=== PATIENT | female | born 1975 | race Caucasian/White ===

== ENCOUNTER 2018-03-25 08:50 | Emergency (ER) | payer OTHER ==
[~2018-03-25] VITALS: Ht 170.2 cm; Wt 56.7 kg
[~2018-03-25 08:50] MED LIST: CEPH-264 PO; HYDR-971 PO; SULF1TAB24 PO
[2018-03-25] MEDS ORDERED: IV NORMAL SALINE 1,000ML 1,000 ML IV SCH (09:08)
[2018-03-25] MEDS ORDERED: KETOROLAC 30 MG/ML VIAL. IV ONE (09:30)
[2018-03-25] MEDS ORDERED: ONDANSETRON PF 4 MG/2 ML VIAL. IV ONE (09:30)
[2018-03-25 09:47] LABS: BASO % 0 % (0-3); EOS % 0 % (0-3); HEMATOCRIT 42.2 % (36.0-47.0); HEMOGLOBIN 13.9 g/dL (12.0-15.5); LYMPH # 0.4 x10^3/uL (1.0-4.8); LYMPH % 5 % (24-48); MEAN CORPUSCULAR HEMOGLOBIN 29 pg (25-35); MEAN CORPUSCULAR HGB CONC 33 g/dL (31-37); MEAN CORPUSCULAR VOLUME 87 fL (79-100); MONO % 0 % (0-9); NEUT # 7.2 x10^3uL (1.8-7.7); NEUT % 94 % (31-73); PLATELET COUNT 229 x10^3/uL (140-400); RED BLOOD COUNT 4.84 x10^6/uL (3.50-5.40); RED CELL DISTRIBUTION WIDTH 14.7 % (11.5-14.5); WHITE BLOOD COUNT 7.7 x10^3/uL (4.0-11.0)
[2018-03-25 09:59] LABS: CALCIUM 8.9 mg/dL (8.5-10.1); CREATININE 0.6 mg/dL (0.6-1.0); GFR 110.2
[2018-03-25 10:00] LABS: POTASSIUM 4.4 mmol/L (3.5-5.1)
--- NOTE | 2018-03-25 10:16 | PHYS DOC ---
Past History Past Medical History: Hypertension, Other Past Surgical History: Cholecystectomy Smoking: Cigarettes Alcohol Use: Occasionally Drug Use: None Adult General Chief Complaint Chief Complaint: BACK PAIN OR INJURY HPI HPI Patient is a 43 year old female who presents with complaining of back pain. Patient states she woke up this morning with severe low back pain in bilateral lower back without radiation. Patient states the pain is a constant pain and rated her pain 10 over 10 and complaining of nausea. Patient denies focal neuro deficit, nausea and vomiting, urinary symptoms, , abdominal pain, injury, history of the same pain. Patient is screaming of pain. Review of Systems Review of Systems Constitutional: Denies fever or chills [] Eyes: Denies change in visual acuity, redness, or eye pain [] HENT: Denies nasal congestion or sore throat [] Respiratory: Denies cough or shortness of breath [] Cardiovascular: No additional information not addressed in HPI [] GI: Denies abdominal pain, nausea, vomiting, bloody stools or diarrhea [] : Denies dysuria or hematuria [] Musculoskeletal: Reports back pain Integument: Denies rash or skin lesions [] Neurologic: Denies headache, focal weakness or sensory changes [] Endocrine: Denies polyuria or polydipsia [] All other systems were reviewed and found to be within normal limits, except as documented in this note. Current Medications Current Medications Current Medications Medications (Trade) Dose Ordered Sig/[facility] Start Time Stop Time Status Last Admin Dose Admin Ketorolac Tromethamine (Toradol 30mg Vial) 30 mg 1X ONCE 03/25/18 09:30 03/25/18 09:31 DC Ondansetron HCl (Zofran) 4 mg 1X ONCE 03/25/18 09:30 03/25/18 09:31 DC Sodium Chloride 1,000 ml @ 1,000 mls/hr Q1H 03/25/18 09:08 03/25/18 10:07 Allergies Allergies Allergies Coded Allergies Type Severity Reaction Last Updated Verified No Known Drug Allergies 01/09/15 No Physical Exam Physical Exam Constitutional: Well nourished, moderate distress, non-toxic appearance, anxious and agitated and screaming of pain. [] HENT: Normocephalic, atraumatic Eyes: PERRLA, EOMI, conjunctiva normal, no discharge. [] Neck: Normal range of motion, no tenderness, supple, no stridor. [] Cardiovascular:Heart rate regular rhythm, no murmur [] Lungs & Thorax: Bilateral breath sounds clear to auscultation [] Abdomen: Bowel sounds normal, soft, no tenderness, no masses, no pulsatile masses. [] Skin: Warm, dry, no erythema, no rash. [] Back: No midline tenderness, bilateral paraspinal muscle voluntary guarding no CVA tenderness. [] Extremities: No tenderness, no cyanosis, no clubbing, ROM intact, no edema, multiple needle stick myrna on extremities] Neurologic: Alert and oriented X 3, normal motor function, normal sensory function, no focal deficits noted. [] Psychologic: Affect anxious Current Patient Data Vital Signs Vital Signs Date Time Temp Pulse Resp B/P (MAP) Pulse Ox O2 Delivery O2 Flow Rate FiO2 03/25/18 08:53 98.5 131 20 100 Room Air EKG EKG [] Radiology/Procedures Radiology/Procedures [] Course & Med Decision Making Course & Med Decision Making Pertinent Labs reviewed. (See chart for details) Evaluation of patient in ER showed 43-year-old female patient with complaining of sudden onset of low back pain since this morning. Patient screaming of pain and moving frequently because of the pain. Patient denies using drugs but had positive UDS for methamphetamine and opiates. Patient was able to fall asleep after treatment in ER. Patient informed about test result and plan of care for applying ice on her back and using anti-inflammatory and muscle relaxant. Dragon Disclaimer Dragon Disclaimer This electronic medical record was generated, in whole or in part, using a voice recognition dictation system. Departure Departure: Impression: Primary Impression: Back pain Additional Impressions: Methamphetamine abuse Anxiety Tobacco abuse Tobacco abuse counseling Disposition: HOME, SELF-CARE (@1056) Condition: IMPROVED Referrals: PCP,NO (PCP) Patient Instructions: Amphetamine Abuse, Lumbosacral Strain, Smoking Cessation , Tips For Success Additional Instructions: Apply ice on your back Follow-up with your primary care physician in 3-5 days Return to ER if not getting better Scripts Naproxen (NAPROSYN) 500 Mg Tablet 1 TAB PO BID, #20 TAB Prov: JHONNY SENA MD 03/25/18 Cyclobenzaprine Hcl (CYCLOBENZAPRINE HCL) 10 Mg Tablet 1 TAB PO TID, #20 TAB Prov: JHONNY SENA MD 03/25/18 Problem Qualifiers JHONNY SENA MD Mar 25, 2018 10:16
[2018-03-25 10:37] LABS: BARBITURATES NEG (NEG); BENZODIAZEPINES NEG (NEG); CANNABINOIDS NEG (NEG); COCAINE NEG (NEG); METHADONE NEG (NEG); OPIATES POS (NEG); PHENCYCLIDINE NEG (NEG)
[2018-03-25 10:38] LABS: AMPHETAMINE/METHAMPHETAMINE POS (NEG)
[2018-03-25 10:43] LABS: BACTERIA,URINE 0 /HPF (0-FEW); BILIRUBIN,URINE NEG (NEG); CLARITY,URINE CLEAR; COLOR,URINE YELLOW; GLUCOSE,URINE NEG (NEG); NITRITE,URINE NEG (NEG); RBC,URINE 0 /HPF (0-2); SQUAMOUS EPITHELIAL CELL,UR OCC /LPF; UROBILINOGEN,URINE 0.2 mg/dL (0.2 mg/dL); WBC,URINE 0 /HPF (0-4)
[2018-03-25] MEDS ORDERED: CYCL-331 PO (10:58)
[2018-03-25] MEDS ORDERED: NAPR-683 PO (10:58)
[2018-03-25 11:00] VITALS: BP 108/54
== END 2018-03-25 11:19 | disposition home or self-care (01) ==
LOC: ER 08:50
DX: M54.5 Low back pain (principal); F15.10 Other stimulant abuse, uncomplicated; F41.9 Anxiety disorder, unspecified; I10 Essential (primary) hypertension; F17.210 Nicotine dependence, cigarettes, uncomplicated; Z71.6 Tobacco abuse counseling
CPT/HCPCS: 36415; 80048; 80307; 81001; 83690; 85025; 96374; 96375; 99284; J1885; J2405; J3010; G0479; J7030

== ENCOUNTER 2020-08-14 00:16 | Emergency (ER) | payer MEDICAID, OTHER ==
[~2020-08-14] VITALS: Ht 170.2 cm; Wt 59.3 kg
[~2020-08-14 00:16] MED LIST changes: +CYCL-331 PO; +HYDR-3165 PO; -HYDR-971 PO; +NAPR-683 PO
--- NOTE | 2020-08-14 00:35 | PHYS DOC ---
Past History Past Medical History: Hypertension, Other Past Surgical History: Cholecystectomy Smoking: Cigarettes Alcohol Use: Occasionally Drug Use: None General Adult EDM: Chief Complaint: MECHANICAL FALL HPI: HPI: " I slipped on bathroom floor.. and hit my head yesterday.. maybe out a second.. but had a head ache since.. and just not recovered..." Patient is a 45 year old female who presents with above hx and complaints of headache and generalized upper neck tenderness. Patient does not think she would completely unconscious but was stunned from the fall. Patient states she fell because she slipped on a wet bathroom floor. Patient states she has had some generalized head pain and myalgias since fall. No history immunosuppression. Not on any anticoagulants. Normally healthy. Does smoke. Up-to-date vaccinations. Review of Systems: Review of Systems: Constitutional: Denies fever or chills Eyes: Denies change in visual acuity HENT: Denies nasal congestion or sore throat Respiratory: Denies cough or shortness of breath Cardiovascular: Denies chest pain or edema GI: Denies abdominal pain, nausea, vomiting, bloody stools or diarrhea : Denies dysuria Musculoskeletal: Denies back pain or joint pain Integument: Denies rash Neurologic: Complains of headache,. Denies focal weakness . States her olfactory sensory changes Endocrine: Denies polyuria or polydipsia Lymphatic: Denies swollen glands Psychiatric: Denies depression or anxiety Family History: Family History: Noncontributory to presentation Current Medications: Current Meds: See nursing for home meds Allergies: Allergies: Allergies Coded Allergies Type Severity Reaction Last Updated Verified No Known Drug Allergies 01/09/15 No Physical Exam: PE: Constitutional:, no acute distress, non-toxic appearance. [] HENT: Normocephalic, contusion to forehead, bilateral external ears normal, oropharynx moist, no oral exudates, nose normal. [] Eyes: PERRLA, EOMI, conjunctiva normal, no discharge. [] Neck: Normal range of motion, upper neck paracervical tenderness, supple, no stridor. [] Cardiovascular:Heart rate regular rhythm, no murmur [] Lungs & Thorax: Bilateral breath sounds equal apex with scattered wheezes on auscultation [] Abdomen: Bowel sounds normal, soft, no tenderness, no masses, no pulsatile masses. Old surgery scars Skin: Warm, dry, no erythema, no rash. [] Back: No tenderness, no CVA tenderness. [] Extremities: No tenderness, no cyanosis, no clubbing, ROM intact, no edema. [] Neurologic: Alert and oriented X 3, normal motor function, normal sensory function, no focal deficits noted. [] DTRs +2 patella and brachial. [facility] equa l. No drift. Ambulatory without problems. Psychologic: Affect anxious, judgement normal, mood normal. [] EKG: EKG: [] Radiology/Procedures: Radiology/Procedures: [][address] [address] IMAGING REPORT Signed PATIENT: JAMES GORMAN ACCOUNT: [id number] : 1975 LOCATION: ER AGE: 45 SEX: F EXAM STATUS: REG ER ORD. PHYSICIAN: COLLEEN MILLER MD REASON: Head injury 2 days ago, headache, neck pain PROCEDURE: CT HEAD AND CERVICAL SPINE WO PQRS Compliance Statement: One or more of the following individualized dose reduction techniques were utilized for this examination: 1. Automated exposure control 2. Adjustment of the mA and/or kV according to patient size 3. Use of iterative reconstruction technique CT head and cervical spine without contrast 08/14/2020 12:41 AM INDICATION: Head injury 2 days ago. Headache and neck pain. COMPARISON: None available TECHNIQUE: Multiple axial CT images of the head were obtained from skull base through the vertex without intravenous contrast. Multiple axial CT images of the cervical spine were obtained without intravenous contrast. Coronal and sagittal reformats are provided. FINDINGS: Head: Ventricles, sulci and basal cisterns are within normal limits. There is no hydrocephalus. Choudhury-white matter differentiation is normal. There is no acute intracranial hemorrhage. There is no mass, mass effect or midline shift. Posterior fossa is normal in appearance. Visualized portions of the orbits are normal. Paranasal sinuses are well aerated. Mastoid air cells are well aerated. Scalp and calvaria are normal. Cervical spine: Alignment of the cervical spine is normal. Skull base is intact. Craniocervical junction is normal in appearance. Atlantoaxial articulation is normal. Vertebral body heights are maintained without evidence for acute fracture. Mild facet arthropathy at C3-C4. Disc bulges are identified at C5-C6 and C6-C7. No significant osseous neural foraminal stenosis. No significant osseous spinal canal stenosis. Transverse foramen are intact. There is no prevertebral soft tissue swelling. Thyroid gland is normal in appearance. Visualized portions of the lung apices are normal without evidence for suspicious pulmonary nodule or infiltrate. IMPRESSION: 1. No acute intracranial hemorrhage. 2. No acute fracture or malalignment of the cervical spine. Mild cervical spondylosis. Electronically signed by: Aureliano Plascencia MD (08/14/2020 1:00 AM) [facility] DICTATED AND SIGNED BY: AURELIANO PLASCENCIA MD DATE: 08/14/2056 CC: COLLEEN MILLER MD; PCP,UNKNOWN ~MTH0 0 Heart Score: Risk Factors: Risk Factors: DM, Current or recent (<one month) smoker, HTN, HLP, family history of CAD, obesity. Risk Scores: Score 0 - 3: 2.5% MACE over next 6 weeks - Discharge Home Score 4 - 6: 20.3% MACE over next 6 weeks - Admit for Clinical Observation Score 7 - 10: 72.7% MACE over next 6 weeks - Early Invasive Strategies Course & Med Decision Making: Course & Med Decision Making Pertinent Labs and Imaging studies reviewed. (See chart for details) Patient use ice packs as needed. Take Tylenol and ibuprofen for pain. Follow- up primary care. If prolonged concussion syndrome consider follow-up neurology and MRI. Return if any concerns. Courage patient stop smoking. Impression: 1. Head Injury 2. Concussion [] Dragon Disclaimer: Dragon Disclaimer: This electronic medical record was generated, in whole or in part, using a voice recognition dictation system. Departure Departure: Referrals: PCP,UNKNOWN (PCP) Dragon Disclaimer This chart was dictated in whole or in part using Voice Recognition software in a busy, high-work load, and often noisy Emergency Department environment. It may contain unintended and wholly unrecognized errors or omissions. Dragon Disclaimer This chart was dictated in whole or in part using Voice Recognition software in a busy, high-work load, and often noisy Emergency Department environment. It may contain unintended and wholly unrecognized errors or omissions. Dragon Disclaimer This chart was dictated in whole or in part using Voice Recognition software in a busy, high-work load, and often noisy Emergency Department environment. It may contain unintended and wholly unrecognized errors or omissions. Dragon Disclaimer This chart was dictated in whole or in part using Voice Recognition software in a busy, high-work load, and often noisy Emergency Department environment. It may contain unintended and wholly unrecognized errors or omissions. COLLEEN MILLER MD Aug 14, 2020 00:35
--- NOTE | 2020-08-14 01:02 | RAD ---
PQRS Compliance Statement: One or more of the following individualized dose reduction techniques were utilized for this examinat ion: 1. Automated exposure control 2. Adjustment of the mA and/or kV according to patient size 3. Use of iterative reconstruction technique CT head and cervical spine without contrast 08/14/2020 12:41 AM INDICATION: Head injury 2 days ago. Headache and neck pain. COMPARISON: None available TECHNIQUE: Multiple axial CT images of the head were obtained from skull base through the vertex with out intravenous contrast. Multiple axial CT images of the cervical spine were obtained without intrav enous contrast. Coronal and sagittal reformats are provided. FINDINGS: Head: Ventricles, sulci and basal cisterns are within normal limits. There is no hydrocephalus. Choudhury-white matter differentiation is normal. There is no acute intracranial hemorrhage. There is no mass, mass e ffect or midline shift. Posterior fossa is normal in appearance. Visualized portions of the orbits are normal. Paranasal sinuses are well aerated. Mastoid air cells a re well aerated. Scalp and calvaria are normal. Cervical spine: Alignment of the cervical spine is normal. Skull base is intact. Craniocervical junction is normal in appearance. Atlantoaxial articulation is normal. Vertebral body heights are maintained without evidence for acute fracture. Mild facet arthropathy at C3-C4. Disc bulges are identified at C5-C6 and C6-C7. No significant osseou s neural foraminal stenosis. No significant osseous spinal canal stenosis. Transverse foramen are int act. There is no prevertebral soft tissue swelling. Thyroid gland is normal in appearance. Visualized port ions of the lung apices are normal without evidence for suspicious pulmonary nodule or infiltrate. IMPRESSION: 1. No acute intracranial hemorrhage. 2. No acute fracture or malalignment of the cervical spine. Mild cervical spondylosis. Electronically signed by: Melinda Buckley MD (08/14/2020 1:00 AM) [facility]
[2020-08-14] MEDS ORDERED: KETOROLAC 60 MG/2 ML VIAL. IM ONE (02:15)
[2020-08-14 02:33] VITALS: BP 144/95
== END 2020-08-14 02:33 | disposition home or self-care (01) ==
LOC: ER 00:16
DX: S06.0X0A Concussion without loss of consciousness, initial encounter (principal); I10 Essential (primary) hypertension; F17.210 Nicotine dependence, cigarettes, uncomplicated; W01.0XXA Fall on same level from slipping, tripping and stumbling without subsequent striking against object, initial encounter; Y93.89 Activity, other specified; Y92.89 Other specified places as the place of occurrence of the external cause; Y99.8 Other external cause status
CPT/HCPCS: 70450; 72125; 96372; 99285; J1885

== ENCOUNTER 2021-01-28 14:38 | Emergency (ER) | payer MEDICAID ==
[~2021-01-28] VITALS: Ht 170.2 cm; Wt 59.3 kg
[2021-01-28] MEDS ORDERED: HYDROcodone/APAP 5/325MG 1 TAB TABLET PO ONE (15:00)
--- NOTE | 2021-01-28 15:11 | PHYS DOC ---
Past History Past Medical History: No Pertinent History, Hypertension Past Surgical History: Cholecystectomy, Tonsillectomy Smoking: Cigarettes Alcohol Use: Occasionally Drug Use: None General Adult EDM: Chief Complaint: SKIN PROBLEM Problems: (1) Skin problem HPI: HPI: 45-year-old female presents to the emergency department complaint of right hand pain over the dorsal aspect of her hand. She reports that she noticed swelling, redness, pain developing over the last 2 days gradually. She denies any acute injury or injection to the hand recently. She believes that the area developed after a insect bite. She has had similar skin lesions in the past and reports that she was diagnosed with MRSA infections over a chronic basis. The patient denies nausea, vomiting, fever, chills, chest pain, shortness of breath, abdominal pain, urinary symptoms, cough, recent trauma, or any other complaints. Review of Systems: Review of Systems: Constitutional: Denies fever or chills. Eyes: Denies change in vision, pain. Respiratory: Denies cough or shortness of breath. Cardiovascular: Denies chest pain or edema. Musculoskeletal: Denies extremity pain, or trauma. Skin: Admits to skin lesion over the right hand, denies rash. Neurologic: Denies headache, focal weakness. Psychiatric: Denies depression or anxiety. All other systems reviewed as negative except for what was mentioned in the HPI. Family History: Family History: Noncontributory Allergies: Allergies: Allergies Coded Allergies Type Severity Reaction Last Updated Verified No Known Drug Allergies 01/09/15 No Physical Exam: PE: Constitutional: No acute distress, non-toxic appearance. Appears anxious. HENT: Atraumatic, bilateral external ears normal, nose normal. Eyes: PERRLA, EOMI, conjunctiva normal, no discharge. Neck: Normal range of motion, supple, no stridor. Cardiovascular: 2+ radial pulse. Lungs & Thorax: No respiratory distress, symmetrical expansion. Bilateral breath sounds clear to auscultation Abdomen: Soft, no tenderness Skin: 2 x 2 area of induration over the dorsum of the right hand, adjacent and slightly medial to the snuffbox region, associated tenderness is appreciated. There is no involvement over the volar aspect of the hand Extremities: Patient has full range of motion of the right hand, digits, wrist Neurologic: Alert and oriented X 3, normal motor function, normal sensory function, no focal deficits noted. Non ataxic gait. GCS 15. Psychologic: Affect normal, judgment normal, mood normal. Current Patient Data: Vital Signs: Vital Signs Date Time Temp Pulse Resp B/P (MAP) Pulse Ox O2 Delivery O2 Flow Rate FiO2 01/28/21 14:59 98.3 114 16 137/97 94 Room Air Heart Score: C/O Chest Pain: N/A Course & Med Decision Making: Course & Med Decision Making Abscess was drained at the bedside as below, patient will be placed on doxycycline for 7 days, advised return precautions. She would like to be tested for Covid. She has no symptoms at this time but was in close contact with somebody who had Covid. HR likely 2/2 anxiety. Incision and drainage procedure Time: 1515 Confirmed: Patient, procedure, side, and site correct. Consent: Patient has given verbal consent. Indication: Right hand abscess. Performed by: Concha Baker DO. Pre procedure exam: Circulation, motor, and sensory intact. Procedural sedation: None. Description: Location: Right hand Anesthesia: 6 mL 1% lidocaine, with epinephrine. Preparation: sterile field established, skin prepped with betadine. Incision: 1 cm incision was made, using a #10 blade scalpel. Technique: fluid collection was manually decompressed, wound probed, loculations decompressed. Drainage: Moderate amount, purulent, serosanguineous. Post procedure exam: Circulation, motor, sensory examination intact. Patient tolerated: Well. Complications: None. Follow-up: Home care instructions given. Total time: 10 minutes Departure Departure: Impression: Primary Impression: Abscess of right hand excluding fingers and thumb Disposition: 01 HOME / SELF CARE / HOMELESS Condition: STABLE Referrals: PCPJAYNE (PCP) Additional Instructions: You were seen for an abscess. You need to return to the ED if you develop worsening pain, fever, swelling, redness, or any other new or concerning symptoms. You need to return to the your primary care in 2 days to have your wound checked. You should try to keep the area clean and dry in the meantime. Do not submerge in water. You may shower as normal. Take the entire course of antibiotics as prescribed. You have been given a prescription for doxycycline. This medicine is an antibiotic for abscess/cellulitis. Please take as prescribed for the full course of the prescription. Do not stop taking the medicine early if you feel better, as this could risk building antibiotic resistance and may put you at risk for a more harmful infection later. The most common side effect of antibiotics include nausea, vomiting, diarrhea and rash. Please come to be evaluated if you develop any symptoms that are concerning to you. One major adverse effect of antibiotics is the development of a diarrheal illness called c. diff colitis, if you develop an excessive amount of diarrhea or are concerned about this please return to the ER or consult a physician. Scripts Doxycycline Hyclate (DOXYCYCLINE HYCLATE) 100 Mg Capsule 1 CAP PO BID for cellulitis, #14 CAP Prov: CONCHA QUINTANILLA DO 01/28/21 CONCHA QUINTANILLA DO Jan 28, 2021 15:11
[2021-01-28] MEDS ORDERED: LIDOCAINE 1%/EPI 1:100,000 10 ML VIAL. ONE (15:17)
[2021-01-28] MEDS ORDERED: LIDOCAINE 1%/EPI 1:100,000 10 ML VIAL. INJ ONE (15:30)
[2021-01-28] MEDS ORDERED: DOXY100C3 PO (15:40)
[2021-01-28 15:55] VITALS: BP 131/93
== END 2021-01-28 15:57 | disposition home or self-care (01) ==
LOC: ER 14:38
DX: L02.511 Cutaneous abscess of right hand (principal); I10 Essential (primary) hypertension; F17.210 Nicotine dependence, cigarettes, uncomplicated; Z20.822 Contact with and (suspected) exposure to COVID-19
CPT/HCPCS: 10060; 99283; U0005; U0003

== ENCOUNTER 2021-06-05 21:41 | Emergency (ER) | payer SELFPAY ==
[~2021-06-05] VITALS: Ht 170.2 cm; Wt 60.9 kg
[~2021-06-05 21:41] MED LIST changes: -CYCL-331 PO; +CYCL10TA19 PO; +DOXY100C3 PO
--- NOTE | 2021-06-05 22:27 | PHYS DOC ---
Past History Past Medical History: No Pertinent History, Hypertension Past Surgical History: Cholecystectomy, Tonsillectomy Smoking: Cigarettes Alcohol Use: Rarely Drug Use: None General Adult EDM: Chief Complaint: COUGH HPI: HPI: 46-year-old female presents with productive cough of yellowish sputum for the la st 4 days. She is also been fatigue, shortness of breath, headache, body aches. She has not noticed a fever at home. She is vaccinated against COVID-19. She is a cigarette smoker. No diagnosis of COPD. She is not on any breathing treatments. Review of Systems: Review of Systems: Constitutional: Denies fever or chills Eyes: Denies change in visual acuity HENT: Denies nasal congestion or sore throat Respiratory: Cough with shortness of breath Cardiovascular: Denies chest pain or edema GI: Denies abdominal pain, nausea, vomiting, bloody stools or diarrhea : Denies dysuria Musculoskeletal: Denies back pain or joint pain Integument: Denies rash Neurologic: Denies headache, focal weakness or sensory changes Endocrine: Denies polyuria or polydipsia Lymphatic: Denies swollen glands Psychiatric: Denies depression or anxiety Allergies: Allergies: Allergies Coded Allergies Type Severity Reaction Last Updated Verified No Known Drug Allergies 01/09/15 No Physical Exam: PE: Constitutional: Well developed, well nourished, no acute distress, non-toxic appearance. [] HENT: Normocephalic, atraumatic, bilateral external ears normal, oropharynx moist, no oral exudates, nose normal. [] Eyes: PERRLA, EOMI, conjunctiva normal, no discharge. [] Neck: Normal range of motion, no tenderness, supple, no stridor. [] Cardiovascular: Heart rate regular rhythm, no murmur [] Lungs & Thorax: Bilateral breath sounds diminished] Abdomen: Bowel sounds normal, soft, no tenderness, no masses, no pulsatile masses. [] Skin: Warm, dry, no erythema, no rash. [] Back: No tenderness, no CVA tenderness. [] Extremities: No tenderness, no cyanosis, no clubbing, ROM intact, no edema. [] Neurologic: Alert and oriented X 3, normal motor function, normal sensory fu nction, no focal deficits noted. [] Psychologic: Affect normal, judgement normal, mood normal. [] EKG: EKG: [] Radiology/Procedures: Radiology/Procedures: [] Impressions: EXAM: XR CHEST 1V 06/05/2021 10:20 PM CLINICAL INDICATION: Shortness of breath COMPARISON: None TECHNIQUE: AP upright view of the chest FINDINGS: The heart and mediastinum are normal. Lungs are well-expanded and clear. No consolidation, pleural effusion, or pneumothorax. Pulmonary vascularity is normal. The thoracic skeleton is intact. IMPRESSION: Normal chest radiograph. Electronically signed by: Leatha Cain MD (06/05/2021 11:16 PM) [facility] DICTATED AND SIGNED BY: LEATHA CAIN MD DATE: 06/05/21 [id number] CC: DIPAK STACY DO; PCP,NO ~MTH0 0 Heart Score: C/O Chest Pain: N/A Risk Factors: Risk Factors: DM, Current or recent (<one month) smoker, HTN, HLP, family history of CAD, obesity. Risk Scores: Score 0 - 3: 2.5% MACE over next 6 weeks - Discharge Home Score 4 - 6: 20.3% MACE over next 6 weeks - Admit for Clinical Observation Score 7 - 10: 72.7% MACE over next 6 weeks - Early Invasive Strategies Course & Med Decision Making: Course & Med Decision Making Pertinent Labs and Imaging studies reviewed. (See chart for details) The patient's chest x-ray is negative for acute findings. I will treat her with 10 mg of Decadron. The patient does not want to stay for all of her results. With difficulty getting her blood. Her vitals are stable. I believe it is reasonable for her to go home. We will inform her if anything significant turns up in her lab work. She is stable for discharge at this time. [] Dragon Disclaimer: Dragjuliet Disclaimer: This electronic medical record was generated, in whole or in part, using a voice recognition dictation system. Departure Departure: Impression: Primary Impression: Cough Additional Impression: Suspected COVID-19 virus infection Disposition: HOME / SELF CARE / HOMELESS Condition: STABLE Referrals: PCP,JAYNE (PCP) Patient Instructions: Cough, Adult, [id number] Additional Instructions: You have been tested for or diagnosed with COVID-19. It is an infection caused by a new type of coronavirus. COVID-19 will cause cold-like or mild flu symptoms in most. It can cause more severe symptoms like problems breathing in some. There is no treatment for COVID-19. The body will clear the infection over time. Self-care will help to ease discomfort. Steps to Take: Self-Care Rest as needed. Healthy habits may help you feel better. Steps include: Choose healthy foods including fruits and vegetables. Drink water throughout the day. Get plenty of sleep each night. If you smoke, try to quit. It may ease breathing. Avoid alcohol. Keep Others Healthy The virus can spread to others. Droplets are released every time you sneeze or cough. The droplets can get into the mouth, nose, or eyes of people near you and lead to infection. To lower the chances of spreading COVID-19 to others: Stay at home until your doctor has said it is safe to leave. If you tested positive this will mean staying isolated until both of the following are true: At least 7 days have passed since the start of illness. You are free of fever for at least 72 hours without the use of medicine. During this time: - Avoid public areas, events, or transportation. Do not return to work or school until your doctor has said it is safe to do so. - Call ahead if you need to go to a medical center. Let them know you may have COVID-19. It will help them guide you where to go. They may also ask you to wear a facemask when you come to the office. - If you call for emergency medical services, let them know you may have COVID- 19. While at home: - Try to avoid close contact with others. Stay about 6 feet away. - If possible, spend most of your time in a separate room from others. - Use a face mask if you will be in close contact with others such as sharing a room or vehicle. - Have someone wipe down common surfaces in the home. Use household tour coordinator every day on areas like doorknobs, counters, or sinks. - Cough or sneeze into a tissue. Throw the tissue away right after use. If a tissue is not available, cough or sneeze into your elbow. - Wash your hands often. Wash them after sneezing or coughing. Use soap and water and wash for at least 20 seconds. Alcohol based hand bobbin cleaner can be used if soap and water is not available. - Do not prepare food for others. Avoid sharing personal items like forks, spoons, or toothbrushes. - Avoid close contact with pets while you are sick. There is no evidence of the virus passing to pets. This is a safety step until more is known about this virus. Isolation can be frustrating. Social interaction can help. Keep in touch with friends and family through phone and tech options. You can still interact with others in your home, just keep a safe distance of about 6 feet. Follow-up: Your doctors office will check in with you to see if there are any changes in your health. You may be asked to keep track of symptoms to share with them. They will also let you know when you are clear to be in public again. Problems to Look Out For: Contact your doctor if your recovery is not going as you expect. Get emergency care if you have problems such as: - Trouble breathing - Nonstop chest pain or pressure - Changes in awareness, confusion, or problems waking - Lips or face have bluish color - Worsening of symptoms If you think you have an emergency, call for emergency medical services right away. As taken from [facility] DIPAK STACY DO Jun 05, 2021 22:26
--- NOTE | 2021-06-05 23:18 | RAD ---
EXAM: XR CHEST 1V 06/05/2021 10:20 PM CLINICAL INDICATION: Shortness of breath COMPARISON: None TECHNIQUE: AP upright view of the chest FINDINGS: The heart and mediastinum are normal. Lungs are well-expanded and clear. No consolidatio n, pleural effusion, or pneumothorax. Pulmonary vascularity is normal. The thoracic skeleton is int act. IMPRESSION: Normal chest radiograph. Electronically signed by: Leatha Cain MD (06/05/2021 11:16 PM) [facility]
[2021-06-05 23:54] LABS: INFLUENZA A PATIENT NEGATIVE (NEGATIVE); INFLUENZA B PATIENT NEGATIVE (NEGATIVE)
[2021-06-06 00:08] VITALS: BP 162/70
[2021-06-06 00:21] LABS: BASO # 0.1 x10^3/uL (0.0-0.2); BASO % 1 % (0-3); EOS # 0.2 x10^3/uL (0.0-0.7); EOS % 3 % (0-3); HEMATOCRIT 45.9 % (36.0-47.0); HEMOGLOBIN 15.1 g/dL (12.0-15.5); LYMPH # 3.5 x10^3/uL (1.0-4.8); LYMPH % 52 % (24-48); MEAN CORPUSCULAR HEMOGLOBIN 30 pg (25-35); MEAN CORPUSCULAR HGB CONC 33 g/dL (31-37); MEAN CORPUSCULAR VOLUME 91 fL (79-100); MONO # 0.4 x10^3/uL (0.0-1.1); MONO % 6 % (0-9); NEUT # 2.6 x10^3uL (1.8-7.7); NEUT % 38 % (31-73); PLATELET COUNT 209 x10^3/uL (140-400); RED BLOOD COUNT 5.04 x10^6/uL (3.50-5.40); RED CELL DISTRIBUTION WIDTH 13.7 % (11.5-14.5); WHITE BLOOD COUNT 6.8 x10^3/uL (4.0-11.0)
[2021-06-06] MEDS ORDERED: DEXAMETHASONE SOD PHOS 10 MG/ML VIAL. PO ONE (00:30)
[2021-06-06 00:33] LABS: CALCIUM 8.9 mg/dL (8.5-10.1); CREATININE 0.7 mg/dL (0.6-1.0); GFR 90.9; POTASSIUM 3.8 mmol/L (3.5-5.1)
[2021-06-06 00:38] LABS: ALBUMIN 3.7 g/dL (3.4-5.0); TOTAL PROTEIN 7.4 g/dL (6.4-8.2)
[2021-06-06 00:39] LABS: TOTAL BILIRUBIN 1.2 mg/dL (0.2-1.0)
== END 2021-06-06 00:21 | disposition home or self-care (01) ==
LOC: ER 21:41
DX: R05.9 Cough, unspecified (principal); R06.02 Shortness of breath; R51.9 Headache, unspecified; I10 Essential (primary) hypertension; F17.210 Nicotine dependence, cigarettes, uncomplicated; Z20.822 Contact with and (suspected) exposure to COVID-19
CPT/HCPCS: 71045; 80053; 85025; 87804; 99284; C9803; J1100; U0003

== ENCOUNTER 2021-11-10 06:39 | Emergency (ER) | payer SELFPAY ==
[~2021-11-10] VITALS: Ht 170.2 cm; Wt 61.0 kg
[2021-11-10 06:55] VITALS: BP 165/112
[2021-11-10 07:45] LABS: CLARITY,URINE HAZY; COLOR,URINE YELLOW; GLUCOSE,URINE NEG (NEG); NITRITE,URINE NEG (NEG)
[2021-11-10] MEDS ORDERED: KETOROLAC 60 MG/2 ML VIAL. IM ONE (07:45)
[2021-11-10] MEDS ORDERED: ORPHENADRINE CITRATE 60 MG/2 ML VIAL. IM ONE (07:45)
[2021-11-10 07:46] LABS: BACTERIA,URINE MOD /HPF (0-FEW); HYALINE CASTS, URINE MANY /HPF; SQUAMOUS EPITHELIAL CELL,UR MOD /LPF
--- NOTE | 2021-11-10 08:32 | RAD ---
Study: CT abdomen/pelvis without intravenous contrast Indication: Right flank pain. Comparison: None. Technique: Helical CT imaging performed of the abdomen and pelvis without the use of intravenous cont rast. Sagittal and coronal reformats were obtained. One or more of the following individualized dose reduction techniques were utilized for this examinat ion: 1. Automated exposure control 2. Adjustment of the mA and/or kV according to patient size 3. Use of iterative reconstruction technique. Findings: Inherently limited evaluation without intravenous contrast. The visualized thoracic contents are within normal limits. Small focus of low attenuation within the left hepatic lobe on image 21 series 2 is not fully characterized but statistically most likely benig n. Per consensus recommendations no dedicated follow-up is needed unless otherwise indicated. Absent gallbladder. Unremarkable biliary tree, pancreas, spleen and adrenal glands. No nephrolithiasis or collecting system dilatation on the right. Faint increased density at the left kidney upper pole in the region of the corticomedullary junction but no well delineated nephrolithias is. No collecting system dilatation on the left. Unremarkable urinary bladder. Intrauterine contraceptive device appearing well-positioned. No adnexal abnormality. Within normal limits colon with mild volume colonic stool burden. Normal appendix. A few segments of small bowel are ectatic but there are no findings of obstruction. Unremarkable stomach. Nonaneurysmal aorta. No pathologically enlarged lymph nodes. No free fluid or pneumoperitoneum. Unrem arkable body wall soft tissues. Mild lumbar levocurvature which could be positional. No acute or aggressive osseous process. Impression: 1. No acute abnormality is identified throughout the abdomen or pelvis. In the setting of reported r ight flank pain there is no nephrolithiasis or collecting system dilatation. 2. Intrauterine contraceptive device appears normally positioned. Unremarkable CT appearance of the reproductive organs. 3. Absent gallbladder. Electronically signed by: VENU CROCKETT MD (11/10/2021 8:29 AM) [facility]
[2021-11-10] MEDS ORDERED: CYCL5TAB PO (08:46)
[2021-11-10] MEDS ORDERED: MELO15TA23 PO (08:46)
--- NOTE | 2021-11-10 08:46 | PHYS DOC ---
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 Patient states she was seen about 1.5 weeks ago and [facility] and prescribed hydrocodone and cyclobenzaprine. Patient states the pain is still present. States it started on the right but now feels it on both sides and radiates to her right lower extremity. Patient states that prior to the pain starting she been helping a friend move some wood in the back of a truck. Denies any heavy lifting but states she was bending over with her back to order picker the blood. Denies any hematuria, dysuria, fevers or chills. Denies any history of kidney stones. Patient states she has been laying down a lot and not doing any stretching or exercises. Review of Systems: Review of Systems: All other systems within normal limits except for as noted in the HPI Current Medications: Current Meds: Current Medications Medications (Trade) Dose Ordered Sig/Phoebe Start Time Stop Time Status Last Admin Dose Admin Ketorolac Tromethamine (Toradol Im) 60 mg 1X ONCE 11/10/21 07:45 11/10/21 08:00 DC 11/10/21 07:59 60 MG Orphenadrine Citrate (Norflex) 60 mg 1X ONCE 11/10/21 07:45 11/10/21 08:00 DC 11/10/21 08:00 60 MG Allergies: Allergies: Allergies Coded Allergies Type Severity Reaction Last Updated Verified No Known Drug Allergies 11/10/21 No Physical Exam: PE: Constitutional: Well developed, well nourished, no acute distress, non-toxic appearance. [] HENT: Normocephalic, atraumatic, bilateral external ears normal, nose normal. [] Eyes: PERRLA, conjunctiva normal, no discharge. [] Neck: No rigidity, supple, no stridor. [] Cardiovascular: Regular rate and rhythm, brisk cap refill [] Lungs & Thorax: Non labored symmetric respirations, no tachypnea or respiratory distress [] Abdomen: Soft, nondistended. Skin: Warm, dry, no erythema, no rash. [] Back: Unremarkable, no point tenderness on the spine, step-off or deformity. Right paraspinal muscle tenderness Extremities: No deformities, range of motion grossly intact, no lower extremity edema [] Neurologic: Alert and oriented X 3, no focal deficits noted. [] Psychologic: Affect normal, judgement normal, mood normal. [] Current Patient Data: Labs: Laboratory Tests Test 11/10/21 06:27 11/10/21 07:05 POC Urine HCG, Qualitative hcg negative (Negative) Urine Collection Type Unknown Urine Color Yellow Urine Clarity Hazy Urine pH 5.5 Urine Specific Fenwick >=1.030 Urine Protein 30 mg/dl (NEG-TRACE) Urine Glucose (UA) Neg mg/dL (NEG) Urine Ketones (Stick) Neg mg/dL (NEG) Urine Blood Neg (NEG) Urine Nitrite Neg (NEG) Urine Bilirubin Small (NEG) Urine Urobilinogen Dipstick 1.0 mg/dL (0.2 mg/dL) Urine Leukocyte Esterase Neg (NEG) Urine RBC 3-5 /HPF (0-2) Urine WBC 5-10 /HPF (0-4) Urine Squamous Epithelial Cells Mod /LPF Urine Transitional Epithelial Cells Occ /LPF Urine Renal Epithelial Cells Occ /LPF Urine Bacteria Mod /HPF (0-FEW) Urine Hyaline Casts Many /HPF Urine Mucus Marked /LPF Vital Signs: Vital Signs Date Time Temp Pulse Resp B/P (MAP) Pulse Ox O2 Delivery O2 Flow Rate FiO2 11/10/21 06:55 98.2 112 20 165/112 (129) 98 EKG: EKG: [] Radiology/Procedures: Radiology/Procedures: [address] [address] IMAGING REPORT Signed PATIENT: JAMES GORMAN ACCOUNT: [id number] : 1975 LOCATION: ER AGE: 46 SEX: F EXAM STATUS: REG ER ORD. PHYSICIAN: BRYAN GUPTA MD REASON: right flank pain, stone study PROCEDURE: CT ABDOMEN PELVIS WO CONTRAST Study: CT abdomen/pelvis without intravenous contrast Indication: Right flank pain. Comparison: None. Technique: Helical CT imaging performed of the abdomen and pelvis without the use of intravenous contrast. Sagittal and coronal reformats were obtained. One or more of the following individualized dose reduction techniques were utilized for this examination: 1. Automated exposure control 2. Adjustment of the mA and/or kV according to patient size 3. Use of iterative reconstruction technique. Findings: Inherently limited evaluation without intravenous contrast. The visualized thoracic contents are within normal limits. Small focus of low attenuation within the left hepatic lobe on image 21 series 2 is not fully characterized but statistically most likely benign. Per consensus recommendations no dedicated follow-up is needed unless otherwise indicated. Absent gallbladder. Unremarkable biliary tree, pancreas, spleen and adrenal glands. No nephrolithiasis or collecting system dilatation on the right. Faint increased density at the left kidney upper pole in the region of the corticomedullary junction but no well delineated nephrolithiasis. No collecting system dilatation on the left. Unremarkable urinary bladder. Intrauterine contraceptive device appearing well-positioned. No adnexal abnormality. Within normal limits colon with mild volume colonic stool burden. Normal appendix. A few segments of small bowel are ectatic but there are no findings of obstruction. Unremarkable stomach. Nonaneurysmal aorta. No pathologically enlarged lymph nodes. No free fluid or pneumoperitoneum. Unremarkable body wall soft tissues. Mild lumbar levocurvature which could be positional. No acute or aggressive osseous process. Impression: 1. No acute abnormality is identified throughout the abdomen or pelvis. In the setting of reported right flank pain there is no nephrolithiasis or collecting system dilatation. 2. Intrauterine contraceptive device appears normally positioned. Unremarkable CT appearance of the reproductive organs. 3. Absent gallbladder. Electronically signed by: VENU CROCKETT MD (11/10/2021 8:29 AM) [facility] DICTATED AND SIGNED BY: VENU CROCKETT MD DATE: 11/10/21809 CC: BRYAN GUPTA MD; PCP,NO ~ [] Heart Score: C/O Chest Pain: No Risk Factors: Risk Factors: DM, Current or recent (<one month) smoker, HTN, HLP, family history of CAD, obesity. Risk Scores: Score 0 - 3: 2.5% MACE over next 6 weeks - Discharge Home Score 4 - 6: 20.3% MACE over next 6 weeks - Admit for Clinical Observation Score 7 - 10: 72.7% MACE over next 6 weeks - Early Invasive Strategies Course & Med Decision Making: Course & Med Decision Making Pertinent Labs and Imaging studies reviewed. (See chart for details) [] Nai Disclaimer: Dragon Disclaimer: This electronic medical record was generated, in whole or in part, using a voice recognition dictation system. Departure Departure: Impression: Primary Impression: Back pain Disposition: HOME / SELF CARE / HOMELESS Condition: STABLE Referrals: PCP,NO (PCP) Patient Instructions: Back Exercises Scripts Cyclobenzaprine Hcl (CYCLOBENZAPRINE HCL) 5 Mg Tablet 1 TAB PO TID PRN PRN for MUSCLE SPASMS for 5 Days, #15 TAB Prov: BRYAN GUPTA MD 11/10/21 Meloxicam (MELOXICAM) 15 Mg Tablet 1 TAB PO DAILY PRN for PAIN for 20 Days, #20 TAB 0 Refills Prov: BRYAN GUPTA MD 11/10/21 BRYAN GUPTA MD November 10, 2021 08:46
== END 2021-11-10 08:55 | disposition home or self-care (01) ==
LOC: ER 06:39
DX: M54.89 Other dorsalgia (principal); I10 Essential (primary) hypertension; F17.210 Nicotine dependence, cigarettes, uncomplicated; Z90.49 Acquired absence of other specified parts of digestive tract; Z98.890 Other specified postprocedural states
CPT/HCPCS: 74176; 81001; 81025; 87086; 96372; 99284; J1885; J2360